=== PATIENT | male | born 1995 | race Caucasian/White ===

== ENCOUNTER 2020-08-22 14:40 | Emergency (ER) | payer SELFPAY ==
[2020-08-22 14:48] VITALS: BP 134/96; PULSE 71; RESP 14; TEMP 36.8; O2SAT 100
[2020-08-22 14:54] VITALS: BP 134/96; PULSE 71; RESP 14; TEMP 36.8; O2SAT 100
--- NOTE | 2020-08-22 15:08 | ED.EAR ---
HPI - Ear Problem General Chief complaint: Ear Stated complaint: Possible left Ear infection Time Seen by Provider: 08/22/20 15:09 Source: patient, RN notes reviewed and old records reviewed Mode of arrival: ambulatory Limitations: no limitations History of Present Illness HPI Narrative: 25 year old male [facility] with complaints of 2 day history of left ear pain which worsened after using Debrox. Patient states that his left ear feels like it is clogged, has not noted any drainage from his ear, denies any fevers, chills or sweats, no sore throat or any nasal congestion or drainage reported. Patient states that he could not sleep well last night due to pain, admits to swimming yesterday and has had past history of swimmers ear infection. MD Complaint: ear pain Location: left ear Duration: constant Severity: moderate Relieving factors: nothing Exacerbating factors: nothing Context: Reports recent swimming Discharge from ear: Reports no Associated symptoms ear: decreased hearing Treatment prior to arrival: other (Debrox) Related Data Allergies Allergy/AdvReac Type Severity Reaction Status Date / Time poison ellie extract Allergy Mild ITCHING, Verified 08/22/20 14:53 RASH Review of Systems Review of Systems: Narrative: CONSTITUTIONAL: Denies fever, chills, or sweats. EYES: Denies visual changes, redness, or discharge. ENT: Denies rhinorrhea, congestion, sore throat,positive for left ear pain CARDIOVASCULAR: Denies chest pain, palpitations, or edema. RESPIRATORY: Denies cough or dyspnea. GASTROINTESTINAL: Denies abdominal pain, nausea, vomiting, or diarrhea. GENITOURINARY: Denies dysuria or hematuria. SKIN: Denies rash or itching. MUSCULOSKELETAL: Denies back pain, joint pain, or myalgia. NEUROLOGIC: Denies headache, numbness, or weakness. PSYCHIATRIC: Denies anxiety or depression. All systems reviewed & are unremarkable except as noted in HPI and below PMFSH Past Medical History Medical History (Updated 08/24/20 @ 21:41 by Jeri Ng NP) Fracture of left lower limb Fracture of right forearm Swimmers' ear Walking pneumonia Surgical History Surgical History (Updated 08/22/20 @ 15:23 by Jeri Ng NP) No history of previous surgery Family History Family History (Updated 08/22/20 @ 15:22 by Jeri Ng NP) Other Hypertension Social History Social History (Updated 08/22/20 @ 15:22 by Jeri Ng NP) Tobacco type: smokeless tobacco Alcohol intake: current Alcohol use details: social Substance use: never Living arrangements: with family Gender identity (if verbalized by the patient): Male Comments At time of signature, agree with nursing past medical, surgical, social and family history. There is no relevant family history pertinent to the presenting complaint Exam Narrative: Exam Narrative: GENERAL: Well-appearing, well-nourished, and in no acute distress. HEAD: Normocephalic, atraumatic. EYES: PERRLA and EOMI. ENT: Nares clear, no rhinorrhea or epistaxis. Mucous membranes moist.Left TM normal with good light reflex, ear canal is red swollen and irritated with no drianage present. right TM normal with no redness or irritation noted to canal, Throat pink with no lesions exudates or tonsil enlargement. NECK: Supple.no lymphadenopathy CHEST: Clear to auscultation. No respiratory distress.no cough or feelings of chest congestion reported with SAO2 100% on room air. HEART: Regular rate and rhythm. No murmur heard. Normal peripheral pulses. ABDOMEN: Soft, nontender, nondistended, normal active bowel sounds. EXTREMITIES: Normal range of motion. No edema. SKIN: Warm, dry, no rash. NEURO: No focal deficits. Alert and oriented x3. Course Vital Signs Vital signs: Vital Signs Temperature 36.8 C 08/22/20 14:48 Pulse Rate 71 08/22/20 14:48 Respiratory Rate 14 08/22/20 14:48 Blood Pressure 134/96 H 08/22/20 14:48 Pulse Oximetry 100 08/22/20
== END 2020-08-22 15:34 | disposition home or self-care (01) ==
PROVIDERS: Emergency Provider Registered Nurse
DX: H60.332 Swimmer's ear, left ear (principal); F17.200 Nicotine dependence, unspecified, uncomplicated
CPT/HCPCS: 99213; G0463

== ENCOUNTER 2021-04-20 14:36 | Emergency (ER) | payer SELFPAY ==
[2021-04-20 14:42] VITALS: BP 100/71; PULSE 88; RESP 16; TEMP 36.4; O2SAT 99
--- NOTE | 2021-04-20 15:00 | ED.URI ---
HPI - URI/Sore Throat General Chief Complaint: Upper Respiratory Infection Stated Complaint: abd pain/vomiting/chills/sore throat/tran/weakness Time Seen by Provider: 04/20/21 15:00 Source: patient Mode of arrival: ambulatory Limitations: no limitations History of Present Illness HPI Narrative: 25 yo M presents with c/o sweating since last night. Starting this AM has had sore throat, runny nose, cough, headaches. Unknown fever. afebrile at . Took advil for headache. Denies SOB/CP. Had covid 5 months ago. All systems reviewed and negative except as noted above. Related Data Allergies Allergy/AdvReac Type Severity Reaction Status Date / Time poison ellie extract Allergy Mild ITCHING, Verified 04/20/21 15:05 RASH Review of Systems Review of Systems: CONSTITUTIONAL: Denies fever. reports chills, or sweats. EYES: Denies visual changes, redness, or discharge. ENT: Reports rhinorrhea, congestion, sore throat. Denies otalgia. CARDIOVASCULAR: Denies chest pain, palpitations, or edema. RESPIRATORY: Reports cough. Denies dyspnea. GASTROINTESTINAL: Denies abdominal pain, nausea, vomiting, or diarrhea. GENITOURINARY: Denies dysuria or hematuria. SKIN: Denies rash or itching. MUSCULOSKELETAL: Denies back pain, joint pain, or myalgia. NEUROLOGIC: Denies headache, numbness, or weakness. PSYCHIATRIC: Denies anxiety or depression. All other systems reviewed are negative, except as documented in HPI. [facility] Past Medical History Medical History (Updated 04/20/21 @ 15:23 by April Flores NP) Fracture of left lower limb Fracture of right forearm Swimmers' ear Walking pneumonia Surgical History Surgical History (Updated 08/22/20 @ 15:23 by Jeri Ng NP) No history of previous surgery Family History Family History (Updated 08/22/20 @ 15:22 by Jeri Ng NP) Other Hypertension Social History Social History (Updated 08/22/20 @ 15:22 by Jeri Ng NP) Tobacco type: smokeless tobacco Alcohol intake: current Alcohol use details: social Substance use: never Gender identity (if verbalized by the patient): Male Comments At time of signature, agree with nursing past medical, surgical, social and family history. There is no relevant family history pertinent to the presenting complaint. Exam Narrative: GENERAL: This is a well-nourished, well-developed patient, in no apparent distress. HEAD: normocephalic, atraumatic. EYES: PERRL. Sclera clear/white. Vision is grossly intact. EARS: External ears normal, auditory canals clear and without drainage, TMs normal without perforation. Hearing grossly intact. NOSE: External nose normal. Clear nasal drainage noted. THROAT: Mucous membranes moist. Mild erythema to posterior pharynx. NECK: Neck supple, non-tender without lymphadenopathy, masses or thyromegaly. CARDIOVASCULAR: Regular rate and rhythm without murmurs, gallops, or rubs. RESPIRATORY: Clear to auscultation. Breath sounds equal bilaterally. No wheezes, rales, or rhonchi. GASTROINTESTINAL: Abdomen soft, non-tender, nondistended. Bowel sounds are active. No hepato-splenomegaly, or palpable masses. No guarding. SKIN: warm, Dry, intact with no suspicious lesions or rash, good texture and turgor. NEURO: awake, alert, and oriented to person, place and time. There were no obvious focal neurologic abnormalities. EXTREMITIES: No joint tenderness, effusion, or edema noted. No calf tenderness. Negative Homans sign bilaterally. BACK: Nontender without deformity. No CVA tenderness. Course Course Level of Care: Express Care Visit Vital Signs Vital signs: Vital Signs Temperature 36.4 C 04/20/21 14:42 Pulse Rate 88 04/20/21 14:42 Respiratory Rate 16 04/20/21 14:42 Blood Pressure 100/71 04/20/21 14:42 Pulse Oximetry 99 04/20/21 14:42 Temperature 36.4 C 04/20/21 14:42 Pulse Rate 88 04/20/21 14:42 Respiratory Rate 16 04/20/21 14:42 Blood Pressure 100/71 04/20/21
== END 2021-04-20 15:27 | disposition home or self-care (01) ==
PROVIDERS: Emergency Provider Nurse Practitioner Family; PCP Family Medicine
DX: J06.9 Acute upper respiratory infection, unspecified (principal); R11.0 Nausea; Z20.822 Contact with and (suspected) exposure to COVID-19; Z86.16 Personal history of COVID-19
CPT/HCPCS: 87081; 87426; 87880; 99213; C9803; G0463

== ENCOUNTER 2022-03-18 09:12 | Emergency (ER) | payer OTHER, SELFPAY ==
[2022-03-18 09:26] VITALS: BP 106/75; PULSE 62; RESP 18; TEMP 36.7; O2SAT 100
--- NOTE | 2022-03-18 10:25 | ED.GENADULT ---
HPI - General Adult General Chief complaint: Ear Stated complaint: Left Ear Pain Source: patient Mode of arrival: ambulatory History of Present Illness HPI narrative: Patient presents for evaluation of left ear pain for last 4-5 days. He reports muffled hearing in left ear and sensation that there is fluid in the ear. He denies any tinnitus, or actual drainage from left ear. No fever, chills, nausea, vomiting, sinus congestion, sore throat, cough. No recent sick contacts to his knowledge. He does smoke marijuana. He tried using debrox and another [id number] irrigation medication without improvement. Related Data Allergies Allergy/AdvReac Type Severity Reaction Status Date / Time poison ellie extract Allergy Mild ITCHING, Verified 03/18/22 09:29 RASH Review of Systems Review of Systems: CONSTITUTIONAL: Denies fever, chills, or sweats. EYES: Denies visual changes, redness, or discharge. ENT: Reports left ear pain, muffled hearing and sensation of fluid in the ear. Denies drainage from the ear CARDIOVASCULAR: Denies chest pain, palpitations, or edema. RESPIRATORY: Denies cough or dyspnea. GASTROINTESTINAL: Denies abdominal pain, nausea, vomiting, or diarrhea. GENITOURINARY: Denies dysuria or hematuria. SKIN: Denies rash or itching. MUSCULOSKELETAL: Denies back pain, joint pain, or myalgia. NEUROLOGIC: Denies headache, numbness, dizziness, or weakness. PSYCHIATRIC: Denies anxiety or depression. PMFSH Past Medical History Medical History Fracture of left lower limb Fracture of right forearm Swimmers' ear Walking pneumonia Surgical History Surgical History No history of previous surgery Family History Family History Other Hypertension Social History Social History Tobacco type: smokeless tobacco Alcohol intake: current Alcohol use details: social Substance use: never Living arrangements: with family Gender identity (if verbalized by the patient): Male Exam Narrative: GENERAL: Well-appearing, well-nourished, and in no acute distress. HEAD: Normocephalic, atraumatic. EYES: PERRLA and EOMI. ENT: Nares clear, no rhinorrhea or epistaxis. Mucous membranes moist. Oropharynx without tonsillar hypertrophy exudate or other lesions. There is swelling noted to the left ear canal with white/yellow exudate present. I cannot visualize the left TM NECK: Supple. No adenopathy or masses. No carotid bruits or JVD CHEST: Clear to auscultation. No respiratory distress. No wheezes rales or rhonchi HEART: Regular rate and rhythm. No murmur heard. Normal peripheral pulses. ABDOMEN: Soft, nontender, nondistended, normal active bowel sounds. EXTREMITIES: Normal range of motion. No edema. SKIN: Warm, dry, no rash. NEURO: No focal deficits. Alert and oriented x3. PSYCH: Normal mood and affect. Course Course Emergency Course: This is a 26-year-old male who presented for evaluation of left-sided ear pain, sensation of fluid in the ear and muffled hearing. I irrigated his ear and removed white/yellow exudate as well as some cerumen. Hearing improved. I was unable to visualize TM due to swelling and remaining exudate. This could be otitis externa vs otitis media with rupture of TM. Will cover with augmentin and ofloxacin. He should follow up outpatient for further evaluation and treatment and go to ER for worsening symptoms. Pt in agreement with plan of care. Level of Care: Express Care Visit Vital Signs Vital signs: Vital Signs Temperature 36.7 C 03/18/22 09:26 Pulse Rate 62 03/18/22 09:26 Respiratory Rate 18 03/18/22 09:26 Blood Pressure 106/75 03/18/22 09:26 Pulse Oximetry 100 03/18/22 09:26 Oxygen Delivery Room Air 03/18/22 09:26 Temper
== END 2022-03-18 10:25 | disposition home or self-care (01) ==
PROVIDERS: Emergency Provider Nurse Practitioner; PCP Emergency Medicine
DX: H66.92 Otitis media, unspecified, left ear (principal); H61.22 Impacted cerumen, left ear; F17.290 Nicotine dependence, other tobacco product, uncomplicated; F12.90 Cannabis use, unspecified, uncomplicated
CPT/HCPCS: 69209; 99213; G0463

== ENCOUNTER 2022-06-20 11:29 | Outpatient (CLI) | payer OTHER, SELFPAY ==
--- NOTE | ~2022-06-20 | XR_ITS ---
Lumbosacral Spine: AP and lateral views Clinical History: Pain Findings: The normal lordotic curve is maintained. The vertebral bodies and posterior elements are i ntact. The intervertebral disc spaces are preserved. The sacroiliac joints are normally outlined. Impression: No significant abnormality. Reviewed, dictated and finalized at [facility]. Impression: No significant abnormality.
[2022-06-20 20:27] LABS: Basophils Percent Auto 0.5 % (0.2-1.2); Eosinophils Absolute Auto 0.5 K/mm3 (0-0.3); Hematocrit 44.1 % (42.0-52.0); Hemoglobin 14.7 g/dL (14.0-18.0); Immature Granulocyte Absolute 0.02 K/mm3 (0.00-0.031); Immature Granulocyte Percent A 0.3 % (0-0.5); Lymphocytes Absolute Auto 2.16 K/mm3 (0.9-3.2); Lymphocytes Percent Auto 37.6 % (18.3-44.2); Mean Corpuscular HGB Conc 33.3 g/dl (32-36); Mean Corpuscular Hemoglobin 31.4 pg (26-34); Mean Corpuscular Volume 94.2 fl (80-100); Monocytes Absolute Auto 0.5 K/mm3 (0.1-0.6); Monocytes Percent Auto 8.5 % (2.6-8.5); Neutrophils Absolute Auto 2.5 K/mm3 (1.3-6.7); Neutrophils Percent Auto 44.1 % (45.5-73.1); Platelet Count Result 190 k/mm3 (150-375); Red Blood Count 4.68 M/mm3 (4.6-6.20); Red Cell Distribution Width 11.9 % (11.5-14.5); White Blood Count 5.8 K/mm3 (4.5-10.0)
[2022-06-20 21:38] LABS: Alanine Aminotransferase 27 U/L (6-50); Albumin Level 4.8 g/dL (3.5-5.1); Alkaline Phosphatase 57 U/L (38-126); Anion Gap 9 mmol/L (8-16); Aspartate Amino Transferase 54 U/L (17-59); Bilirubin,Total 0.6 mg/dL (0.2-1.3); Blood Urea Nitrogen 18 mg/dL (9-20); Calcium 9.1 mg/dL (8.4-10.2); Carbon Dioxide 28 mmol/L (22-30); Chloride 103 mmol/L (98-107); Cholesterol 129 mg/dL (0-200); Estimated Glomerular Filt Rate > 60; Glucose 85 mg/dL (65-110); HDL Direct 38 mg/dL; Potassium 4.5 mmol/L (3.4-5.0); Sodium 140 mmol/L (137-145); Triglycerides 103 mg/dL (<150)
[2022-06-20 21:49] LABS: LDL Cholesterol Direct 66 mg/dL
== END 2022-06-20 11:30 | disposition home or self-care (01) ==
LOC: ANHBWCLAB 11:30
PROVIDERS: PCP Nurse Practitioner; Visit Provider Nurse Practitioner
DX: Z00.00 Encounter for general adult medical examination without abnormal findings (principal); Z76.89 Persons encountering health services in other specified circumstances; M54.50 Low back pain, unspecified
CPT/HCPCS: 36415; 72100; 80053; 80061; 85025

== ENCOUNTER 2022-10-16 10:07 | Emergency (ER) | payer OTHER, SELFPAY ==
[2022-10-16 10:18] VITALS: BP 124/66; PULSE 68; RESP 16; TEMP 36.4; O2SAT 99
--- NOTE | 2022-10-16 11:01 | ED.URI ---
HPI - URI/Sore Throat General Chief Complaint: Upper Respiratory Infection Stated Complaint: fever/throat/ears/fatigue Time Seen by Provider: 10/16/22 10:50 Source: patient, RN notes reviewed and old records reviewed Mode of arrival: ambulatory Limitations: no limitations History of Present Illness HPI Narrative: 27-year-old male who presents to [facility] with complaints of sore throat, left ear pain and fatigue starting this morning. Patient has not taken any hlvu-esy-nveqigm medication for his symptoms. Patient states that he went to work and they sent him home because of his symptoms.Patient reports that he has had some chills and hot flashes, slight cough no fever noted. MD elicited complaint: cough, sore throat and other (left ear) Onset (ago): hour(s) (this morning) Severity: mild Able to tolerate fluids by mouth: Yes Treatments prior to arrival: none Related Data Allergies Allergy/AdvReac Type Severity Reaction Status Date / Time poison ellie extract Allergy Mild ITCHING, Verified 09/10/22 13:11 RASH Review of Systems Review of Systems: CONSTITUTIONAL: Reports malaise, chills, sweats, unknown fever. EYES: Denies visual changes, redness, or discharge. ENT: Reports rhinorrhea, congestion, no sinus pain, left otalgia and sore throat. CARDIOVASCULAR: Denies chest pain, palpitations, or edema. RESPIRATORY: Reports cough.? Denies dyspnea. GASTROINTESTINAL: Denies abdominal pain, nausea, vomiting, diarrhea SKIN: Denies rash or itching. MUSCULOSKELETAL: Denies myalgia. NEUROLOGIC: Denies headache. All systems reviewed & are unremarkable except as noted in HPI and below [facility] Past Medical History Medical History (Updated 10/17/22 @ 11:36 by Jeri Ng NP) Encounter to establish care Fracture of left lower limb Fracture of right forearm Swimmers' ear Walking pneumonia Surgical History Surgical History No history of previous surgery Family History Family History Father Hypertension Social History Social History Smoking status: Current every day smoker Tobacco type: smokeless tobacco Smokeless tobacco user: chewing tobacco Alcohol intake: current Alcohol use details: Beer once a week Substance use: never Lack of Transportation: No Lack of Food: Never True Current Housing: I Have Housing Concerned About Future Housing: No Difficulty Paying Gas/Electric Bills: No Difficulty Paying for Meds: No Currently Unemployed: No Education: High School Diploma/GED Difficulty w/ Childcare or Family Care: No Living arrangements: with family Occupation/Education: occupation Additional occupation/education comments: [employer] Gender 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 There is no relevant family history pertinent to the presenting complaint Exam Narrative: GENERAL: Well-appearing, well-nourished, and in no acute distress. HEAD: Normocephalic EYES: PERRLA, conjunctivae clear ENT: Nares clear, turbinates edematous and erythematous, clear discharge. Mucous membranes moist. TM pearly hart with dull light reflex bilaterally;left tragal tenderness, left ear excoriated canal no acute swelling of canal and no discomfort to mastoid area. Oropharynx erythematous without lesions. Tonsils not enlarged and without exudate, no drooling, no hoarseness, no trismus, uvula midline.post nasal drainage NECK: Supple. No lymphadenopathy CHEST: Clear to auscultation, breath sounds equal. No wheezing, rhonchi, rales, or stridor. No respiratory distress, speaks in full sentences.rare cough, SAO2 99% on room air HEART: Regular rate and rhythm. No murmu
== END 2022-10-16 11:49 | disposition home or self-care (01) ==
PROVIDERS: Emergency Provider Registered Nurse; PCP Family Medicine
DX: H60.92 Unspecified otitis externa, left ear (principal); J06.9 Acute upper respiratory infection, unspecified; F17.220 Nicotine dependence, chewing tobacco, uncomplicated; Z20.822 Contact with and (suspected) exposure to COVID-19
CPT/HCPCS: 87081; 87426; 87880; 99213; C9803; G0463

== ENCOUNTER 2023-02-28 13:01 | Emergency (ER) | payer OTHER, SELFPAY ==
[2023-02-28 13:10] VITALS: BP 107/68; PULSE 65; RESP 20; TEMP 36.7; O2SAT 100
--- NOTE | 2023-02-28 13:25 | ED.EAR ---
HPI - Ear Problem General Chief complaint: Ear Stated complaint: Left Ear Pain Time Seen by Provider: 02/28/23 13:30 Source: patient and RN notes reviewed Mode of arrival: ambulatory Limitations: no limitations History of Present Illness HPI Narrative: 27-year-old male presents with concern for left ear pain. Reports symptoms started a week ago. Reported he has frequent ear infections. He called his primary doctor who called him in some ear drops with the pharmacy does not have them. He reports drainage from the ear. MD Complaint: ear pain Related Data Allergies Allergy/AdvReac Type Severity Reaction Status Date / Time poison ellie extract Allergy Mild ITCHING, Verified 02/28/23 13:21 RASH Review of Systems Review of Systems: CONSTITUTIONAL: Denies malaise, chills, sweats, or fever. EYES: Denies visual changes, redness, or discharge. ENT: Denies rhinorrhea, congestion, sinus pain, and sore throat. Reports left ear pain CARDIOVASCULAR: Denies chest pain, palpitations, or edema. RESPIRATORY: Denies cough. Denies dyspnea. GASTROINTESTINAL: Denies abdominal pain, nausea, vomiting, diarrhea SKIN: Denies rash or itching. MUSCULOSKELETAL: Denies myalgia. NEUROLOGIC: Denies headache. All systems reviewed & are unremarkable except as noted in HPI and below PMFSH Past Medical History Medical History (Updated 02/28/23 @ 13:39 by Nellie Koroma NP) Encounter to establish care Fracture of left lower limb Fracture of right forearm Swimmers' ear Walking pneumonia Surgical History Surgical History No history of previous surgery Family History Family History Father Hypertension Social History Social History Smoking status: Current every day smoker Tobacco type: smokeless tobacco Smokeless tobacco user: chewing tobacco Alcohol intake: current Alcohol use details: Beer once a week Substance use: never Lack of Transportation: No Lack of Food: Never True Current Housing: I Have Housing Concerned About Future Housing: No Difficulty Paying Gas/Electric Bills: No Difficulty Paying for Meds: No Currently Unemployed: No Education: High School Diploma/GED Difficulty w/ Childcare or Family Care: No Living arrangements: with family Occupation/Education: occupation 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 There is no relevant family history pertinent to the presenting complaint Exam Narrative: GENERAL: Well-appearing, well-nourished, and in no acute distress. HEAD: Normocephalic EYES: PERRLA, conjunctivae clear ENT: Nares clear, turbinates edematous, clear discharge. Mucous membranes moist. TM pearly hart with sharp light reflex bilaterally; left tragal tenderness with EAC erythema, edema, purulent drainage. NECK: Supple. No lymphadenopathy CHEST: No respiratory distress, speaks in full sentences. HEART: Regular rate and rhythm. No murmur heard. SKIN: Warm, dry, no rash. NEURO: Alert and oriented x3. PSYCH: Normal mood and affect Course Course Emergency Course: Patient is aware of diagnosis, understands and agrees to treatment plan. Anticipatory guidance given. Patient agrees to follow-up as directed and is aware of reasons to seek care at the emergency department. Portions of this record may have been created with voice recognition software Level of Care: Express Care Visit Vital Signs Vital signs: Vital Signs Temperature 98.0 F 02/28/23 13:10 Pulse Rate 65 02/28/23 13:10 Respiratory Rate 20 02/28/23 13:10 Blood Pressure 107/68 02/28/23 13:10 Pulse Oximetry 100
== END 2023-02-28 13:41 | disposition home or self-care (01) ==
PROVIDERS: Emergency Provider Nurse Practitioner; PCP Nurse Practitioner Adult Health
DX: H60.92 Unspecified otitis externa, left ear (principal); F17.220 Nicotine dependence, chewing tobacco, uncomplicated
CPT/HCPCS: 99213; G0463

== ENCOUNTER 2024-07-13 11:20 | Emergency (ER) | payer SELFPAY ==
[2024-07-13 11:34] VITALS: BP 113/70; PULSE 79; RESP 20; TEMP 36.6; O2SAT 100
[2024-07-13 11:43] LABS: EDSTREPNEGPOS1 Negative (Negative)
--- NOTE | 2024-07-13 11:54 | ED.URI ---
HPI - URI/Sore Throat General Chief Complaint: Upper Respiratory Infection Stated Complaint: Sore Throat Time Seen by Provider: 07/13/24 11:45 Source: patient and RN notes reviewed Mode of arrival: ambulatory Limitations: no limitations History of Present Illness HPI Narrative: 28-year-old male presents Express Care complaining of sore throat, congestion, dry eyes, sneezing for 2 days. Patient believes he has allergies. Patient said he took Claritin with minimal relief. Patient denies any sore throat, ear pain, cough, chest pain, shortness of breath, or any other symptoms. Patient denies any significant past medical history. Related Data Allergies Allergy/AdvReac Type Severity Reaction Status Date / Time poison ellie extract Allergy Mild ITCHING, Verified 02/28/23 13:21 RASH Review of Systems Review of Systems: CONSTITUTIONAL: Denies fever, chills, or sweats. EYES: Denies visual changes, redness, or discharge. Positive for dry eyes. ENT: Denies rhinorrhea or otalgia. Positive for congestion, sneezing, and sore throat. CARDIOVASCULAR: Denies chest pain, palpitations, or edema. RESPIRATORY: Denies cough or dyspnea. GASTROINTESTINAL: Denies abdominal pain, nausea, vomiting, or diarrhea. GENITOURINARY: Denies dysuria or hematuria. SKIN: Denies rash or itching. MUSCULOSKELETAL: Denies back pain, joint pain, or myalgia. NEUROLOGIC: Denies headache, numbness, or weakness. PSYCHIATRIC: Denies anxiety or depression. All other systems reviewed are negative, except as documented in HPI. [facility] Past Medical History Medical History Encounter to count includes the [facility] care Swimmers' ear Fracture of left lower limb Fracture of right forearm Walking pneumonia Surgical History Surgical History No history of previous surgery Family History Family History Father Hypertension Social History Social History Smoking status: Current every day smoker Tobacco type: smokeless tobacco Smokeless tobacco user: chewing tobacco Alcohol intake: current Alcohol use details: Beer once a week Substance use: never Lack of Transportation: No Lack of Food: Never True Current Housing: I Have Housing Concerned About Future Housing: No Difficulty Paying Gas/Electric Bills: No Difficulty Paying for Meds: No Currently Unemployed: No Education: High School Diploma/GED Difficulty w/ Childcare or Family Care: No Living arrangements: with family Occupation/Education: occupation 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 There is no relevant family history pertinent to the patient complaint. Exam Narrative: GENERAL: This is a well-nourished, well-developed adult, in no apparent distress. They are non ill-appearing, nontoxic appearing. HEAD: normocephalic, atraumatic. EYES: Sclera clear/white. Conjunctiva normal. Vision is grossly intact. Extraocular movements intact. Pupils PERRLA. EARS: External ears normal, auditory canals clear and without drainage, TMs normal without perforation. Hearing grossly intact. NOSE: External nose normal with no obvious nasal discharge, nasal turbinates edematous and boggy, no rhinorrhea. THROAT: Mucous membranes moist, posterior pharynx without erythema or swelling. Uvula midline. Postnasal drip present. NECK: Neck supple, non-tender without lymphadenopathy, masses or thyromegaly. CARDIOVASCULAR: Regular rate and rhythm without murmurs, gallops, or rubs. RESPIRATORY: Clear to auscultation. Breath sounds equal bilaterally. No wheezes, rales, or rhonchi. GASTROINTESTINAL: Abdomen soft, non-tender, nondistended. Bowel sounds are active. No hepato-splenomegaly, or palpable masses. No guarding. SKIN: warm, Dry, intact with no suspicious lesions or rash, good texture and turgor. NEURO: awake, alert, and oriented to person, place and time. There were no obvious focal neurologic abnormalities. EXTREMITIES: No joint tenderness, effusion, or edema noted. BACK: Nontender without deformity. No CVA tenderness. Course Course Emergency Course: Portions of this record may have been created with voice recognition software Level of Care: Express Care Visit Vital Signs Vital signs: Vital Signs Temperature 97.8 F 07/13/24 11:34 Pulse Rate 79 07/13/24 11:34 Respiratory Rate 20 07/13/24 11:34 Blood Pressure 113/70 07/13/24 11:34 Pulse Oximetry 100 07/13/24 11:34 Temperature 97.8 F 07/13/24 11:34 Pulse Rate 79 07/13/24 11:34 Respiratory Rate 20 07/13/24 11:34 Blood Pressure 113/70 07/13/24 11:34 Pulse Oximetry 100 07/13/24 11:34 Reviewed MDM - URI/Sore Throat MDM Narrative Medical decision making narrative: Rapid strep negative. Throat culture pending. It is likely patient has allergic rhinitis given exam findings. Prescribe Flonase and azelastine spray to help with allergy symptoms. Discussed physical exam findings. Advised supportive measures and signs/symptoms to go to the ER. Pt is appropriate for outpt treatment and f/u. Differential Diagnosis Differential diagnosis: Likely upper respiratory infection, pharyngitis and other (Allergic rhinitis) Lab Data Attestation: I reviewed the patient's lab results. Labs: Lab Results 07/13/24 Range/Units 11:41 POC Grp A Strep Screen Negative (Negative) Critical Care Time Critical Care Time Critical Care Time: No Discharge Plan Discharge Clinical Impression: Allergic rhinitis Qualifiers: Allergic rhinitis trigger: unspecified Allergic rhinitis seasonality: unspecified Qualified Code(s): J30.9 - Allergic rhinitis, unspecified Patient Disposition: Home Condition: Stable Instructions: Allergies (ED) Additional Instructions: Your rapid strep is negative today. A throat culture will be sent off and will be contacted if it is positive. At that time you will be prescribed appropriate antibiotics. Is likely her symptoms are related to allergies. Continue taking your Claritin daily. Use the Flonase nasal spray as directed for congestion Use the Azelastine spray as directed for allergies. You may use [id number] eyedrops to help with dryness You may use a Neti pot saline rinse 3 times a day with lukewarm distilled water Use a humidifier or vaporizer at night. Drink plenty of water. 8-10 glasses per day. Follow up with Primary provider in 3-5 days Please go to the ER if he develops any difficulty breathing, worsening symptoms, or any other concerns Patient Language: Wallisian Prescriptions: New fluticasone propionate [Flonase Allergy Relief] 50 mcg/actuation spray,suspension 2 spray intranasal DAILY Qty: 1 0RF Rx Instructions: administer into each nostril azelastine 205.5 mcg (0.15 %) spray,non-aerosol 2 spray intranasal DAILY 14 Days Qty: 4 0RF Rx Instructions: administer into each nostril Follow-up/Referrals: PHYSICIAN NOT ON STAFF,NONSTAFF [Primary Care Provider] - Stand Alone Forms: Work/School Release IP Time of Disposition: 11:54
--- OUTSIDE RECORDS SUMMARY | 2024-07-13 11:55 | XMS_ITS | Referral Summary ---
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 0 0 04/28/19 16 Active Additional Information Patient not taking.Reported on 11/07/2020 docusate sodium (STOOL SOFTENER) 50 mg capsule take 1 capsule by oral route every day at bedtime as needed 0 0 04/28/19 16 Active Additional Information Patient not taking.Reported on 11/07/2020 itraconazole (ONMEL) 200 mg tablet take 1 tablet by oral route every day at the same time each day with a full meal for 5 days 5 0 09/05/19 16 Active Additional Information Patient not taking.Reported on 11/07/2020 hydrOXYzine (ATARAX) 25 mg tablet take 1 tablet by oral route every 4 - 6 hours prn 60 0 03/30/19 14 Active Additional Information Patient not taking.Reported on 11/07/2020 permethrin (ELIMITE) 5 % cream apply 1 by topical route once (thoroughly massage into skin from head to soles of feet) once leave on for 8-14 hr, then remove w/ showering 120 0 04/14/19 14 Active Additional Information Patient not taking.Reported on 11/07/2020 ondansetron ODT (ZOFRAN-ODT) 4 mg disintegrating tablet Dissolve 1 tablet oral every 4 hours as needed for nausea or vomiting. 15 tablet 05/14/19 19 Active Additional Information Patient not taking.Reported on 11/07/2020 fexofenadine (COLIN) 180 mg tablet Take 180 mg by mouth daily Active Active Problems Problem Noted Date Diagnosed Date Acute pharyngitis 05/13/2018 Nausea 05/13/2018 Medical examinations/reports status 04/13/2013 Overview (05/19/2016): Health care maintenance Immunizations Immunization Administration Dates Next Due DTaP 08/06/2001, 8,02/01/1997,12/02,1996 HPV, Quadrivalent 11/09/2013,12/29/2012,10/28/19 13 Hep B, Adolescent or Pediatric 02/01/1997,1996,1996 Hib (HbOC) 11/01/1997, 7,1996,09/30 IPV 08/06/2001, 8,02/01/1997,12/02,1996 MMR 08/06/2001,08/02/1997 Meningococcal MCV4P (Menactra) 10/27/2012 Meningococcal Polysaccharide (Menomune) 09/30/2007 Tdap 04/23/2015,09/30/2007 Varicella 11/09/2013,08/02/1997 Social History Tobacco Use Types Packs/Day Years Used Date Smoking Tobacco: Never Alcohol Use Standard Drinks/Week Comments Yes 0 (1 standard drink = 0.6 oz pur e alcohol) Sex and Gender Information Value Date Recorded Sex Assigned at Not on file 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 Gender Identity Not on file Sexual Orientation Not on file Last Filed Vital Signs Vital Sign Reading Time Taken Comments Blood Pressure 126/77 07/07/2021 6:18 PM CDT Pulse 69 07/07/2021 6:18 PM CDT Temperature 36.8 C (98.2 F) 07/07/2021 6:18 PM CDT Respiratory Rate 18 07/07/2021 6:18 PM CDT Oxygen Saturation 100% 07/07/2021 6:18 PM CDT Inhaled Oxygen Concentration - - Weight 56.7 kg (125 lb) 07/07/2021 6:18 PM CDT Height 170.2 cm (5' 7) 11/07/2020 2:49 PM CDT Body Mass Index 19.58 11/07/2020 2:49 PM CDT Plan of Treatment Not on file Care Teams 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
--- OUTSIDE RECORDS SUMMARY | 2024-07-13 11:55 | XMS_ITS | Clinical Summary ---
Author Organization [facility] Address [address] [place] [address] Care Team Providers Care Bit Sharpener Name Role Phone Morris Collier MD Primary Care Provider [phone] Allergies No known active allergies Medications erythromycin [...] Polysaccharide (Menomune) 09/30/2007 Tdap 04/23/2015,09/30/2007 Varicella 11/09/2013,08/02/1997 Surgical History Surgery Date Site/Laterality Comments OTHER SURGICAL HISTORY 7-2 product nl preg: CAN - did well Medical History Medical History Date Comments Hx Other Medical 1996 08-2 product nl preg Hx Other Medical 1997 Acute bronchiol itis RSV Hx Other Medical 04/23/2015 5 fractures to left side of face; Comments: CLS 04/28/2015 - Social History Tobacco Use Types Packs/Day Years Used Date Smoking Tobacco: Never Alcohol Use Standard Drinks/Week Comments Yes 0 (1 standard drink = 0.6 oz pur e alcohol) Sex and Gender Information Value Date Recorded Sex Assigned at Not on file 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
== END 2024-07-13 11:57 | disposition home or self-care (01) ==
DX: J30.9 Allergic rhinitis, unspecified (principal); F17.220 Nicotine dependence, chewing tobacco, uncomplicated
CPT/HCPCS: 87081; 87880; 99213; G0463

== ENCOUNTER 2024-09-30 19:20 | Emergency (ER) | payer SELFPAY ==
--- OUTSIDE RECORDS SUMMARY | 2024-09-30 19:23 | XMS_ITS | Clinical Summary ---
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
[2024-09-30 19:33] VITALS: BP 122/78; PULSE 92; RESP 20; TEMP 36.9; O2SAT 100
[2024-09-30 19:45] LABS: EDSTREPNEGPOS1 Negative (Negative)
--- NOTE | 2024-09-30 19:48 | ED.URI ---
HPI - URI/Sore Throat General Chief Complaint: Upper Respiratory Infection Stated Complaint: Sore Throat History of Present Illness HPI Narrative: patient is a 29-year-old male, presents to [facility] with 24 hour history of sore throat symptoms. He had body aches yesterday afternoon into the evening but has not had any further body aches or chills today. He does feel a sore throat symptoms have improved however he requires a note for work for today and wants to ensure he does not have strep. He denies nasal congestion or cough. He has no known sick contacts. No modifying factors were attempted prior to arrival. Reports his immunizations are up-to-date. Related Data Home Medications ?Medication ?Instructions ?Recorded ?Confirmed ?Last Taken ?Type No Home Medications 09/30/24 09/30/24 Unknown History Allergies Allergy/AdvReac Type Severity Reaction Status Date / Time poison ellie extract Allergy Mild ITCHING, Verified 09/30/24 19:46 RASH Review of Systems Constitutional: Constitutional: Reports as per HPI ENT: Reports as per HPI [facility] Past Medical History Medical History Encounter to establish care Swimmers' ear Fracture of left lower limb Fracture of right forearm Walking pneumonia Surgical History Surgical History No history of previous surgery Family History Family History Father Hypertension Social History Social History Smoking status: Current every day smoker Tobacco type: smokeless tobacco Smokeless tobacco user: chewing tobacco Alcohol intake: current Alcohol use details: Beer once a week Substance use: never Lack of Transportation: No Lack of Food: Never True Current Housing: I Have Housing Concerned About Future Housing: No Difficulty Paying Gas/Electric Bills: No Difficulty Paying for Meds: No Currently Unemployed: No Education: High School Diploma/GED Difficulty w/ Childcare or Family Care: No Living arrangements: with family Occupation/Education: occupation 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 Gender identity (if verbalized by the patient): Male Agree to blood products: Yes Exam Const: General: healthy appearing and no acute distress Nutritional Appearance: well nourished Orientation/consciousness: patient oriented x3 Limitations: no limitations HENMT: Head: normal to inspection Ears: external ears normal and TM's normal bilaterally Face/Nose/Sinus: Normal external nose present Face and sinus: normal facial exam and sinuses nontender Mouth: Yes Normal oral and palatal mucosa present Teeth and gingiva: dentition normal Throat: uvula midline ( Patient has mild pharyngeal injection, no exudate, uvula midline) Eyes: Conjunctivae: conjunctivae normal Pupils: Equal, round and reactive pupils present EOM: EOMs intact bilaterally Direct Ophthalmoscopy: no photophobia Neck: Neck: normal visual inspection, no lymphadenopathy and no meningeal signs Resp: Effort & Inspection: normal respiratory effort Auscultation: clear to auscultation bilaterally Cardio: Rate: regular rate Rhythm: regular rhythm Skin: General skin exam: normal color Rashes: no rashes Wounds: no wounds Neuro: General: patient oriented x3, moves all extremities, no meningeal signs, no focal motor deficits and CN's II-XI intact bilaterally Cranial nerves: Yes Nystagmus not present Speech: normal speech Gait exam (Neuro): Normal gait present Extrem: General: normal to inspection Course Course Emergency Course: strep negative, will send for culture. Patient's symptoms are improved today, he is no longer experiencing chills and is throat is mildly injected. Will allow strep culture to run, treating only if the results are positive. patient is encouraged to continue to push fluids at home and rest. Follow up with his PCP if symptoms change or worsen. Patient is agreeable plan. Level of Care: Express Care Visit ([id number]) Vital Signs Vital signs: Vital Signs Temperature 36.9 C 09/30/24 19:33 Pulse Rate 92 09/30/24 19:33 Respiratory Rate 09/30/24 19:33 Blood Pressure 122/78 09/30/24 19:33 Pulse Oximetry 100 09/30/24 19:33 Oxygen Delivery Room Air 09/30/24 19:33 Temperature 36.9 C 09/30/24 19:33 Pulse Rate 92 09/30/24 19:33 Respiratory Rate 09/30/24 19:33 Blood Pressure 122/78 09/30/24 19:33 Pulse Oximetry 100 09/30/24 19:33 Oxygen Delivery Room Air 09/30/24 19:33 MDM - URI/Sore Throat MDM Narrative Medical decision making narrative: Rapid strep negative, will reflux for culture, supportive care in the meantime Differential Diagnosis Differential diagnosis: Likely upper respiratory infection, viral infection, pharyngitis and other ( strep) Lab Data Labs: Lab Results 09/30/24 Range/Units 19:41 POC Grp A Strep Screen Negative (Negative) Discharge Plan Discharge Clinical Impression: Pharyngitis Qualifiers: Pharyngitis/tonsillitis etiology: unspecified etiology Qualified Code(s): J02.9 - Acute pharyngitis, unspecified Patient Disposition: Home Condition: Stable Instructions: Antibiotic Form, Strep Throat (ED) Additional Instructions: CONTINUE SUPPORTIVE CARE AT HOME, TYLENOL IBUPROFEN DIRECTED [id number] FOR DISCOMFORT. YOU MAY DO CEPACOL LOZENGES FOR SORE THROAT PAIN. WE WILL CONTACT YOU IF YOUR CULTURE RETURNS ABNORMALLY REQUIRES ANTIBIOTIC THERAPY. OTHERWISE FOLLOW UP WITH HER PRIMARY DOCTOR IF SYMPTOMS ARE NOT RESOLVING IN 3-5 DAYS Patient Language: Kenyan Prescriptions: No Action No Home Medications Follow-up/Referrals: PHYSICIAN,LUGGAGE MAKER [Primary Care Provider, Internal Medicine] Stand Alone Forms: Work/School Release IP Time of Disposition: 19:52
== END 2024-09-30 19:54 | disposition home or self-care (01) ==
PROVIDERS: Emergency Provider Nurse Practitioner Family
DX: J02.9 Acute pharyngitis, unspecified (principal); F17.220 Nicotine dependence, chewing tobacco, uncomplicated
CPT/HCPCS: 87081; 87880; 99213; G0463

== ENCOUNTER 2025-01-25 14:45 | Emergency (ER) | payer SELFPAY ==
[2025-01-25 14:52] VITALS: BP 109/69; PULSE 81; RESP 20; TEMP 36.6; O2SAT 100
--- NOTE | 2025-01-25 15:53 | ED.URI ---
HPI - URI/Sore Throat General Chief Complaint: Upper Respiratory Infection Stated Complaint: sore throat Time Seen by Provider: 01/25/25 15:30 Source: patient, RN notes reviewed and old records reviewed Mode of arrival: ambulatory Limitations: no limitations History of Present Illness HPI Narrative: 29 year old male accompanied by brother who is also ill reports complaints of of sore throat, sinus drainage,and cough starting this morning with no known fevers. Patient reports that he has used cough drops for his symptoms. Patient reports no body aches or any shortness of breath. MD elicited complaint: cough and sore throat Onset (ago): day(s) (today) Consistency: constant Pain scale (0-10): 7 Able to tolerate fluids by mouth: Yes Treatments prior to arrival: other (cough drops) Related Data Home Medications ?Medication ?Instructions ?Recorded ?Confirmed ?Last Taken ?Type No Home Medications 09/30/24 01/25/25 Unknown History Allergies Allergy/AdvReac Type Severity Reaction Status Date / Time poison ellie extract Allergy Mild ITCHING, Verified 01/25/25 15:16 RASH Review of Systems Review of Systems: CONSTITUTIONAL: reports malaise, no chills, sweats, or fever. EYES: Denies visual changes, redness, or discharge. ENT: Reports rhinorrhea, congestion, sinus pain, no otalgia and +sore throat. CARDIOVASCULAR: Denies chest pain, palpitations, or edema. RESPIRATORY: Reports cough.? Denies dyspnea. GASTROINTESTINAL: Denies abdominal pain, nausea, vomiting, diarrhea SKIN: Denies rash or itching. MUSCULOSKELETAL: Denies myalgia. NEUROLOGIC: Denies headache. All systems reviewed & are unremarkable except as noted in HPI and below PMFSH Past Medical History Medical History Encounter to establish care Swimmers' ear Fracture of left lower limb Fracture of right forearm Walking pneumonia Surgical History Surgical History No history of previous surgery Family History Family History Father Hypertension Social History Social History Smoking status: Current every day smoker Tobacco type: smokeless tobacco Smokeless tobacco user: chewing tobacco Alcohol intake: current Alcohol use details: Beer once a week Substance use: never Lack of Transportation: No Lack of Food: Never True Current Housing: I Have Housing Concerned About Future Housing: No Difficulty Paying Gas/Electric Bills: No Difficulty Paying for Meds: No Currently Unemployed: No Education: High School Diploma/GED Difficulty w/ Childcare or Family Care: No Living arrangements: with family Occupation/Education: occupation Additional occupation/education comments: [employer] Gender 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 There is no relevant family history pertinent to the presenting complaint Exam Narrative: GENERAL: Well-appearing, well-nourished, and in no acute distress. HEAD: Normocephalic EYES: PERRLA, conjunctivae clear ENT: Nares clear, turbinates edematous and erythematous, clear discharge. Mucous membranes moist. TM pearly hart with dull light reflex bilaterally; no tragal tenderness. Oropharynx erythematous without lesions. Tonsils mildly enlarged and without exudate, no drooling, no hoarseness, no trismus, uvula midline. NECK: Supple. No lymphadenopathy CHEST: Clear to auscultation, breath sounds equal. No wheezing, rhonchi, rales, or stridor. No respiratory distress, speaks in full sentences.Occasional cough noted SAO2 100% on room air HEART: Regular rate and rhythm. No murmur heard. SKIN: Warm, dry, no rash. NEURO: Alert and oriented x3. PSYCH: Normal mood and affect Course Course Level of Care: Express Care Visit Vital Signs Vital signs: Vital Signs Temperature 36.6 C 01/25/25 14:52 Pulse Rate 81 01/25/25 14:52 Respiratory Rate 20 01/25/25 14:52 Blood Pressure 109/69 01/25/25 14:52 Pulse Oximetry 100 01/25/25 14:52 Oxygen Delivery Room Air 01/25/25 14:52 Temperature 36.6 C 01/25/25 14:52 Pulse Rate 81 01/25/25 14:52 Respiratory Rate 20 01/25/25 14:52 Blood Pressure 109/69 01/25/25 14:52 Pulse Oximetry 100 01/25/25 14:52 Oxygen Delivery Room Air 01/25/25 14:52 reviewed MDM MDM Narrative Medical decision making narrative: Patient tested negative for strep,influenza and COVID. Patient 's brother is positive for COVID and recommend that patient retest for COVID again tomorrow. Patient is nontoxic and appropriate for outpatient care will follow up as needed. Anticiapatory gudance and reasons to seek care in ED reviewed with patient with understanding voiced. Differential Diagnosis Differential Diagnosis: Differential diagnostic considerations for upper respiratory infection include upper respiratory infection, croup, otitis media, sinusitis, viral infection, bronchitis, influenza, pharyngitis, strep, uvulitis.? Lab Data MDM Lab Attestation statement: I personally reviewed the patient's lab results. Lab results narrative: strep screen negative, culture sent, COVID antigen negative, Influenza A&B negative Labs: Lab Results 01/25/25 Range/Units 15:25 POC Influenza A Ag Negative (Negative) POC Influenza B Ag Negative (Negative) POC SARS CoV-2 Ag Negative (Negative) POC Grp A Strep Screen Negative (Negative) reviewed Critical Care Time Critical Care Time Critical Care Time: No Discharge Plan Discharge Clinical Impression: Pharyngitis Qualifiers: Pharyngitis/tonsillitis etiology: unspecified etiology Qualified Code(s): J02.9 - Acute pharyngitis, unspecified Patient Disposition: Home Condition: Stable Instructions: Pharyngitis (ED) Additional Instructions: . if culture is positive you will be ordered antibiotic you need to change your toothbrush 48 hours after starting Sanitize all reusable water bottles . Do not share items with others. Salt water gargles may alleviate some of the throat discomfort. You can take Tylenol or ibuprofen per the package instructions for pain/fever. recommend retesting for COVID tomorrow for home test Zyrtec Claritin or Keri daily Your strep test today was negative. A throat culture will be sent to the laboratory for further testing. IF the test is positive, you will receive a phone call within 48 hours and an appropriate antibiotic will be initiated at that time. 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
[2025-01-25 17:01] LABS: EDCOVIDSCREEN Negative (Negative); EDINFLUASCREEN Negative (Negative); EDINFLUBSCREEN Negative (Negative); EDSTREPNEGPOS1 Negative (Negative)
== END 2025-01-25 15:58 | disposition home or self-care (01) ==
PROVIDERS: Emergency Provider Registered Nurse
DX: J02.9 Acute pharyngitis, unspecified (principal); Z20.822 Contact with and (suspected) exposure to COVID-19; F17.220 Nicotine dependence, chewing tobacco, uncomplicated
CPT/HCPCS: 87081; 87426; 87804; 87880; 99213; G0463